=== PATIENT | male | born 1985 | race Caucasian/White ===

== ENCOUNTER 2017-04-28 09:50 | Emergency (ER) | payer SELFPAY ==
[~2017-04-28] VITALS: Ht 157.5 cm; Wt 57.0 kg
[2017-04-28 10:00] VITALS: BP 111/79
[2017-04-28] MEDS ORDERED: TOBRAMYCIN0.3 % OD (10:34)
[2017-04-28] MEDS ORDERED: HOMATROPAIRE OD (10:34)
== END 2017-04-28 11:35 | disposition home or self-care (01) | DRG 125 ==
LOC: ED 09:50
DX: S05.01XA Injury of conjunctiva and corneal abrasion without foreign body, right eye, initial encounter (principal); X58.XXXA Exposure to other specified factors, initial encounter